=== PATIENT | female | born 1970 | race African-American/Black ===

== ENCOUNTER 2017-01-23 09:38 | Day surgery (SDC) | payer BC, OTHER ==
[2017-01-22 12:56] VITALS: BMI 28.3
[~2017-01-23 09:38] MED LIST: ceFAZolin SODIUM 1 GM VIAL IVPB ONE
[2017-01-23 10:44] LABS: PROTHROMBIN TIME (PATIENT) 11.3 SEC (9.98-11.88)
[2017-01-23 10:47] LABS: ACTIVATED PTT 29.7 SECONDS (26.9-34.4)
--- NOTE | 2017-01-23 12:23 | HP ---
Past Medical History - Primary Care Physician PCP:: Rogelio Neri - Admission Chief Complaint: 46yo P0 with uterine/endometrial mass, dysmenorrhea, metrorrhagia admitted for Hysteroscopy, excision of uterine mass, D&C. History of Present Illness: Pt was seen by Dr. Epps and found to have uterine mass on SIS. She was referred for evaluation and excison of the mass. 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: Alzheimer's, CVA, Dementia, Migraine, Multiple Sclerosis, Peripheral Neuropathy, Parkinson's, Seizure, Syncope, TIA, Vertigo, Other Cardiovascular: Yes: Mitral Insufficiency Pulmonary: No: Asthma, Bronchitis, Cancer, COPD, O2 Dependent, Pneumonia, Previously Intubated, Pulmonary Embolus, Pulmonary Fibrosis, Sleep Apnea, Other Gastrointestinal: Yes: GERD, Other (Colon polyps) Hepatobiliary: No: Cirrhosis, Cholelithiasis, Cholecystitis, Choledocholithiasis , Hepatitis A, Hepatitis B, Hepatitis C, Other Renal/: No: Renal Failure, Renal Inusuff, BPH, Cancer, Hematuria, Hemodialysis , Neurogenic Bladder, Renal Calculi, UTI, Other Reproductive: Yes: Fibroids ...: 0 ...Para: 0 Heme/Onc: No: Anemia, B12 Deficiency, Bleeding Disorder, Cancer, Current Chemotherapy, Current Radiation Therapy, Hemochromatosis, Hypercoaguable State, Myeloproliferative Synd, Sickle Cell Disease, Sickle Cell Trait, Thrombocytopenia, Other Infectious Disease: No: AIDS, C-Diff, Herpes Zoster, HIV, MRSA, STD's, Tuberculosis, VREF, Other Psych: No: Addictions, Anxiety, Bipolar, Depression, Panic, Psychosis, Schizophrenia, Other Musculoskeletal: No: Bursitis, Chronic low back pain, Hemiparesis, Hemiplegia, Osteoarthritis, Paraplegia, Other ENT: No: Allergic Rhinitis, Sinusitis, Other Endocrine: No: Anton's Disease, [place]'s Disease, Diabetes Insipidus, Diabetes Mellitus, Hyperparathyroidism, Hyperthyroidism, Hypothyroidism, Osteopenia, SIADH, Other Dermatology: No: Basal Cell, Cellulitis, Eczema, Melanoma, Psoriasis, Squamous Cell, Other Additional Medical History: Right breast cancer - Past Surgical History Past Surgical History: Yes: Colonoscopy Hx Myomectomy: No Hx Transabdominal Cerclage: No Additional Surgical History: Left oophorectomy - Smoking History Smoking history: Never smoked Have you smoked in the past 12 months: No - Alcohol/Substance Use Hx Alcohol Use: No History of Substance Use: reports: None - Social History Usual Living Arrangement: Yes: Alone ADL: Independent History of Recent Travel: No Home Medications - Allergies Allergies/Adverse Reactions: Allergies Allergy/AdvReac Type Severity Reaction Status Date / Time No Known Drug Allergies Allergy Verified 01/23/17 10:56 - Home Medications Home Medications: Ambulatory Orders Acetaminophen [Tylenol -] 500 mg PO PRN PRN 01/22/17 Ferrous Sulfate 325 mg PO DAILY 01/22/17 Nadolol 80 mg PO DAILY 01/22/17 Omeprazole 20 mg PO DAILY 01/22/17 Family Disease History - Family Disease History Family Disease History: Diabetes: Father (HTN), Other: Father, Mother (PCKD), Brother (PCKD), Sister (PCKD) Review of Systems - Review of Systems Constitutional: reports: No Symptoms Eyes: reports: No Symptoms HENT: reports: No Symptoms Neck: reports: No Symptoms Cardiovascular: reports: No Symptoms Respiratory: reports: No Symptoms Gastrointestinal: reports: No Symptoms Genitourinary: reports: No Symptoms Breasts: reports: No Symptoms Reported (right breast ca) Musculoskeletal: reports: No Symptoms Integumentary: reports: No Symptoms Neurological: reports: No Symptoms Endocrine: reports: No Symptoms Hematology/Lymphatic: reports: No Symptoms Psychiatric: reports: No Symptoms Pain Intensity: 0 Physical Exam-LACQUER SIZER Vital Signs: Vital Signs Temperature 97.6 F 01/23/17 10:54 Pulse Rate 52 L 01/23/17 10:54 Respiratory Rate 20 01/23/17 10:54 Blood Pressure 119/74 01/23/17 10:54 O2 Sat by Pulse Oximetry (%) 100 01/23/17 10:53 Constitutional: Yes: Well Nourished, No Distress, Calm Eyes: Yes: WNL, Conjunctiva Clear, EOM Intact HENT: Yes: WNL, Atraumatic, Normocephalic Neck: Yes: WNL, Supple, Trachea Midline Cardiovascular: Yes: WNL, Regular Rate and Rhythm Respiratory: Yes: WNL, Regular, CTA Bilaterally Gastrointestinal: Yes: WNL, Normal Bowel Sounds, Soft ...Rectal Exam: Yes: Deferred Renal/: Yes: WNL Pelvis: Yes: WNL External Genitalia: Yes: Normal Internal Exam Deferred: No Vaginal Exam: Yes: Normal Cervix: Yes: Normal Uterus: Yes: Enlarged Adnexa: Normal: Left, Right Musculoskeletal: Yes: WNL Extremities: Yes: WNL Edema: No Integumentary: Yes: WNL Neurological: Yes: WNL, Alert, Oriented ...Motor Strength: WNL Psychiatric: Yes: WNL, Alert, Oriented Imaging - Results Ultrasound: Report Reviewed Assessment/Plan 46yo P0 with uterine/endometrial mass, dysmenorrhea, metrorrhagia admitted for Hysteroscopy, excision of uterine mass, D&C. We had discussed the risks, benefits, alternatives of surgery at length including but not limited to infection, bleeding, scarring, perforation, amenorrhea, infertility, hysterectomy, etc. The pt verbalized understanding and requested to proceed with surgery. I emphasized that all surgeries have risks and no guarantees can be provided
[2017-01-23] MEDS ORDERED: PROPOFOL 20 ML ONE (12:43)
[2017-01-23] MEDS ORDERED: MIDAZOLAM HCL 2 MG/2 ML SINGLE DOSE VIAL ONE (12:43)
[2017-01-23] MEDS ORDERED: ceFAZolin SODIUM 1 GM VIAL ONE (12:59)
[2017-01-23] MEDS ORDERED: DEXAMETHASONE SOD PHOSPHATE 4 MG/1 ML VIAL ONE (12:59)
[2017-01-23] MEDS ORDERED: ceFAZolin SODIUM 1 GM VIAL IVPB ONE (12:59)
[2017-01-23] MEDS ORDERED: KETOROLAC TROMETHAMINE 30 MG/1 ML VIAL ONE (13:30)
--- NOTE | 2017-01-23 13:42 | OP ---
Operative Note - Note: Operative Date: 01/23/17 Pre-Operative Diagnosis: uterine mass, fibroid uterus, metrorrhagia, dysmenorrhea, breast cancer. Operation: Hysteroscospy, polypectomy, D&C. Findings: Normal uterine cavity with several small polyps Post-Operative Diagnosis: Same as Pre-op Surgeon: Rogelio Neri Anesthesiologist/SOLVENT [employer]ATION ATTENDANT: Ezar Stewart Anesthesia: General Specimens Removed: uterine polyps, endometrial curettings Estimated Blood Loss (mls): 5 Blood Volume Replaced (mls): 0 Fluid Volume Replaced (mls): 700 Operative Report Dictated: Yes
[2017-01-23] MEDS ORDERED: ONDANSETRON 4 MG/2 ML VIAL IVPUSH PRN (13:43)
[2017-01-23] MEDS ORDERED: oxyCODONE HCL 5 MG TABLET PO PRN (13:43)
[2017-01-23] MEDS ORDERED: LACTATED RINGERS SOLUTION 1,000 ML IV SCH (13:45)
[2017-01-23 15:22] VITALS: TEMP 98.4
[2017-01-23 16:41] VITALS: BP 137/72; PULSE 59
--- NOTE | 2017-01-24 06:56 | OP ---
DATE OF OPERATION: 01/23/2017 PREOPERATIVE DIAGNOSES: Uterine mass, fibroid uterus, metrorrhagia, dysmenorrhea, personal history of breast cancer. POSTOPERATIVE DIAGNOSIS: Uterine mass, fibroid uterus, metrorrhagia, dysmenorrhea, personal history of breast cancer. PROCEDURE: Hysteroscopy, dilation and curettage, polypectomy. SURGEON: Rogelio Neri MD ANESTHESIOLOGIST: Ezra Stewart MD ANESTHESIA: General. COMPLICATIONS: None. ESTIMATED BLOOD LOSS: 5 mL. IV FLUIDS: 700 mL. COMPLICATIONS: None. PATHOLOGY: Uterine polyps and endometrial curettings. FINDINGS: Examination under anesthesia revealed a normal size retroverted uterus with no pelvic or adnexal masses. Hysteroscopy revealed a normal uterine contractions with several posterior polyps. The overall contours of the uterine cavity appeared to be within normal limits. DESCRIPTION OF PROCEDURE: The patient was met preoperatively. Risks, benefits, and alternatives of surgery were discussed in detail. All questions were answered. The patient was then brought to the OR with the IV running. She was placed on the surgical table in the supine position. The general anesthesia was achieved without difficulty. The patient was then placed in a dorsal lithotomy position using adjustable Luiz stirrups. She was prepped and draped in the usual sterile fashion. A time-out procedure was conducted as per standard protocol. A weighted speculum was then introduced inside the vagina with good visualization of the cervix. The cervical os was then dilated to accommodate size 21 Nash dilator. A hysteroscope was introduced into the uterine cavity with the findings as described above. A TruClear hysteroscopic resection device was then used to resect all of the uterine polyps with excellent results. Once this was completed, the hysteroscope was removed from the uterus. A sharp curettage was performed. All of the tissue was submitted to Pathology for examination. Excellent hemostasis was noted at the end of the procedure. All of the instruments were removed from the patient. Sponge, lap, and instrument counts were correct. The patient was returned to supine position and transferred to recovery room in stable condition and awake. Aba [id number]
--- NOTE | 2017-01-27 11:55 | PATH ---
Surgical Pathology Report Patient Name: LACHELLE SANTANA [facility]. Rec. #: [id number] /Age/Gender: 1970 (Age: 46) / F Account: [id number] Location: [facility] Taken: 01/23/2017 Received: 01/26/2017 Reported: 01/27/2017 Physicians: Rogelio Neri M.D. Specimen(s) Received A: UTERINE POLYPS B: ENDOMETRIAL CURETTINGS Clinical History Uterine mass, fibroid uterus, dysmenorrhea, breast cancer Final Diagnosis A. ENDOMETRIUM, POLYPECTOMY: SECRETORY ENDOMETRIUM WITH FOCAL AREAS SUGGESTIVE OF BENIGN ENDOMETRIAL POLYP. NO ENDOMETRIAL HYPERPLASIA OR CARCINOMA IDENTIFIED. B. ENDOMETRIUM, CURETTING: SECRETORY ENDOMETRIUM, WITH ENDOMETRIAL GLANDS WITHIN MYOMETRIAL TISSUE SUGGESTIVE OF ADENOMYOSIS. BENIGN ENDOCERVICAL TISSUE PRESENT. NO ENDOMETRIAL HYPERPLASIA OR CARCINOMA IDENTIFIED. Electronically Signed Shawn Morales M.D. Gross Description A. Received in formalin labeled "uterine polyps," is a 2.3 x 2.0 x 0.3 cm aggregate of castaneda soft tissue fragments. The specimen is entirely submitted in one cassette. B. Received in formalin labeled "endometrial curettings," is a 4.3 x 3.5 x 0.4 cm aggregate of castaneda-brown soft tissue fragments admixed with blood clot. The formalin is filtered and the specimen is entirely submitted in 3 cassettes. 01/26/201701/26/2017
== END 2017-01-23 16:30 | disposition home or self-care (01) ==
LOC: JASU-SURG 09:38
PROVIDERS: ATTEND Obstetrics & Gynecology
PROC: 0UB98ZX Excision of Uterus, Via Natural or Artificial Opening Endoscopic, Diagnostic (ICD-10-PCS; principal; 2017-01-23 11:00)
PROC: 0UDB8ZX Extraction of Endometrium, Via Natural or Artificial Opening Endoscopic, Diagnostic (ICD-10-PCS; 2017-01-23 11:00)
DX: N92.1 Excessive and frequent menstruation with irregular cycle (principal); D25.9 Leiomyoma of uterus, unspecified; Z85.3 Personal history of malignant neoplasm of breast; N94.6 Dysmenorrhea, unspecified
CPT/HCPCS: 36415; 84703; 85610; 85730; 86850; 86900; 86901; 88305-TC